=== PATIENT | male | born 1945 | race Caucasian/White ===

== ENCOUNTER 2019-03-08 01:00 | Emergency (ER) | payer MEDICARE ==
[~2019-03-08] VITALS: Ht 167.6 cm; Wt 92.0 kg
[2019-03-08 01:03] VITALS: BP 101/68
[2019-03-08] MEDS ORDERED: HALOPERIDOL LACTATE 5MG/ML VIAL IM ONE (02:45)
[2019-03-08] MEDS ORDERED: LORAZEPAM 2MG/ML CPJ IM ONE (03:00)
[2019-03-08] MEDS ORDERED: OLANZAPINE 10 MG/VIAL IM ONE (03:00)
== END 2019-03-08 03:14 | disposition left against medical advice (07) ==
LOC: ER 01:00
DX: F10.229 Alcohol dependence with intoxication, unspecified (principal); Y90.9 Presence of alcohol in blood, level not specified
CPT/HCPCS: 99283

== ENCOUNTER 2021-08-29 15:52 | Emergency (ER) | payer MEDICAID, OTHER ==
[~2021-08-29] VITALS: Ht 167.6 cm; Wt 78.0 kg
[2021-08-29] MEDS ORDERED: BACITRACIN ZINC OINT UDPKT TOP ONE (16:45)
[2021-08-29] MEDS ORDERED: ACETAMINOPHEN WITH CODEINE 300/30MG TABLET PO ONE (16:45)
[2021-08-29] MEDS ORDERED: LIDOCAINE HCL/PF 1% 10 MG/ML 5ML VIAL INFIL ONE (16:45)
[2021-08-29] MEDS: TETANUS, DIPHTHERIA, PERTUSSIS VAC/PF 0.5ML (>10YR OLD) IM ONE ×2 (17:05→17:09)
[2021-08-29 17:06] VITALS: BP 128/83
== END 2021-08-29 18:26 | disposition home or self-care (01) ==
LOC: ER 15:52
DX: S01.81XA Laceration without foreign body of other part of head, initial encounter (principal); W11.XXXA Fall on and from ladder, initial encounter; Y93.89 Activity, other specified; Y92.018 Other place in single-family (private) house as the place of occurrence of the external cause
CPT/HCPCS: 12002; 70450; 90715; 99284; J3490

== ENCOUNTER 2021-09-13 15:16 | Emergency (ER) | payer BC ==
[~2021-09-13] VITALS: Ht 160 cm; Wt 69.0 kg
[2021-09-13 15:32] VITALS: BP 149/69
== END 2021-09-13 18:33 | disposition home or self-care (01) ==
LOC: ER 15:16
DX: S01.01XD Laceration without foreign body of scalp, subsequent encounter (principal); Z48.00 Encounter for change or removal of nonsurgical wound dressing; Z48.02 Encounter for removal of sutures; X58.XXXD Exposure to other specified factors, subsequent encounter
CPT/HCPCS: 99281